=== PATIENT | male | born 1985 | race Caucasian/White ===

== ENCOUNTER 2016-07-04 22:57 | Emergency (ER) | payer SELFPAY ==
--- NOTE | 2016-07-25 21:26 | ER ---
ADMIT: 07/04/2016 RM/LOC: ER [facility] MR#: [id number] [address] [id number] BRICE DOE [address] [place] [id number] Emergency Room Report SEX: M AGE: 31 : 1985 DATE: 07/04/2016 HISTORY OF PRESENT ILLNESS: A 31-year-old, got a wood sliver in his foot. See T-sheet for history and physical. Approximately 1 inch sliver was removed from the sole of his right foot. Given prophylactic Keflex. Instructed not to wear tennis shoes for the next 5 days. DIAGNOSIS: Foreign body in the foot. Doroteo Szymanski MD/ sanjuanita JOB #: [id number] CC: Gary Brown MD, Attending Physician Magdy Madison MD, Family Physician
== END 2016-07-05 00:56 | disposition home or self-care (01) ==
LOC: ER 22:57
DX: S90.851A Superficial foreign body, right foot, initial encounter (principal); F17.210 Nicotine dependence, cigarettes, uncomplicated; Z88.1 Allergy status to other antibiotic agents; Z88.0 Allergy status to penicillin; W45.8XXA Other foreign body or object entering through skin, initial encounter